=== PATIENT | male | born 1950 | race Caucasian/White ===

== ENCOUNTER → 2020-06-14 06:47 | Outpatient (CLI) | payer MEDICARE, SELFPAY ==
[2020-06-14 19:10] LABS: SARS-CoV-2 RNA PCR Negative
== END ==
PROVIDERS: PCP Internal Medicine; Visit Provider Internal Medicine
DX: Z01.812 Encounter for preprocedural laboratory examination (principal); Z20.822 Contact with and (suspected) exposure to COVID-19
CPT/HCPCS: C9803; U0003; U0005

== ENCOUNTER 2020-06-17 01:13 | Day surgery (SDC) | payer MEDICARE, SELFPAY ==
[2020-06-16 17:45] VITALS: BMI 30.7
--- NOTE | 2020-06-17 | ECHO_ITS ---
Patient Info Name: Sanchez Keane Age: 69 years : 1950 Gender: Male Ht: 69 in Wt: 209 lbs BSA: 2.18 m2 HR: 83 bpm BP: 105 / 71 mmHg Heart Rhythm: Atrial Flutter Technical Quality: Good Exam Date: 06/17/2020 2:28 PM Exam Location: [facility] Patient Status: Outpatient Admit Date: 06/17/2020 Staff Ordering Physician: Eduin Melchor MD ([facility]) Digital Photographic Printer: Romulo Corona RDCS Attending Provider: Eduin Melchor MD (michelle/patrick) Exam Type: CA echo transesophageal Study Info Indications 427.32 - Atrial flutter Complete two-dimensional, color flow and Doppler transesophageal study is performed. Agitated saline study is performed. History/Risk Factors Atrial flutter. Summary 1. Left ventricular systolic function is normal with an ejection fraction by of 55-60 %. 2. Left atrial appendage is normal with normal velocity and no thrombus. 3. Patent foramen ovale (PFO) noted by color doppler and confirmed by bubble study. 4. There is trace mitral valve regurgitation. 5. There is mild tricuspid valve regurgitation. Left Ventricle Left ventricular chamber dimension is normal. Left ventricular systolic function is normal with an ejection fraction by of 55-60 %. There is no increased left ventricular wall thickness. Left ventricular septal wall motion is normal. The left ventricular diastolic function is normal. Right Ventricle Right ventricular chamber dimension is normal. Right ventricular systolic function is normal. Left Atria Left atrial chamber dimension is normal. There is no left atrial appendage thrombus. Right Atria Right atrial chamber dimension is normal. Atrial Septum Patent foramen ovale (PFO) noted by color doppler and confirmed by bubble study. Atrial Appendage Left atrial appendage is normal with normal velocity and no thrombus. Aortic Valve The aortic valve is trileaflet. There is no aortic valve sclerosis. There is no aortic valve stenosis. There is no aortic valve regurgitation. Pulmonic Valve The pulmonic valve is normal. There is no pulmonic valve stenosis. There is no pulmonic regurgitation. Mitral Valve The mitral valve has normal leaflets. There is no mitral valve stenosis. There is trace mitral valve regurgitation. Tricuspid Valve The tricuspid valve leaflets are normal. There is no significant tricuspid valve stenosis. There is mild tricuspid valve regurgitation. Pericardium/Pleural The pericardium appears normal. There is Empty pericardial effusion. Aorta The aortic root size at the sinus of Valsalva is normal. The prox ascending aorta size is normal. Ventricles Name Value Normal LV Fractional Shortening/Ejection Fraction 2D/MM LV EF (BP MOD) 5,560 % 52-72 Report Signatures
--- NOTE | 2020-06-17 12:30 | ECG_ITS ---
Measurements Intervals [place] Rate: 78 P: [place]: 0 QRS: 37 QRSD: 97 T: 72 QT: 369 QTc: 422 Interpretive Statements ATRIAL FLUTTER/TACHYCARDIA BASELINE ARTIFACT- AVR, AVL, AVF, V3-V4 ABNORMAL ECG Electronically Signed On 06-17-2020 12:58:31 MOLECULAR GENETICIST by Jeremi Carpio D.O.
[2020-06-17 13:08] VITALS: BP 133/85; PULSE 75; RESP 14; TEMP 36.6; O2SAT 96
[2020-06-17 13:25] LABS: Anion Gap 6 mmol/L (8-16); Blood Urea Nitrogen 19 mg/dL (9-20); Calcium 9.2 mg/dL (8.4-10.2); Carbon Dioxide 33 mmol/L (22-30); Chloride 103 mmol/L (98-107); Estimated CRCL calculation 66 ml/min; Estimated Glomerular Filt Rate > 60; Glucose 103 mg/dL (75-110); Magnesium 1.8 mg/dL (1.6-2.3); Potassium 4.2 mmol/L (3.4-5.0); Sodium 142 mmol/L (137-145)
--- NOTE | 2020-06-17 13:59 | PM.IMHP ---
H&P: HPI History of Present Illness Date/Time: 06/17/20 13:59 69 year-old Male with h/o hyperlipidemia and Atrial flutter ( Xarelto) , CAD single vessel disease 90% RCA (09-19-19), mild Pulm HTN, mild TR who presented to the hospital for elective Transesophageal echocardiogram and cardioversion He was started on Amiodarone for A flutter in Apr 13. Today he remains in flutter . He has shortness of breath walking room to room at home. He denies chest pain. Had Left heart cath done in 09/19/19 revealed one vessel coronary artery disease,mild 90% stenosis involving the right coronary . He was admitted to the hospital 04/03/19 for Atrial flutter with RVR . He quit smoking in 1995. Had ECHO done in 04/03/19 showed EF 55-60% , There is mild tricuspid valve regurgitation. Mild pulmonary HTN, estimated pulmonary arterial systolic pressure is 44 mmHg. , Chief Complaint: Dyspnea on exertion Atrial Flutter Narrative: Sanchez Keane is a 69 year old male Review of Systems Review of Systems: All systems reviewed & are unremarkable except as noted in HPI and below Constitutional: Constitutional: Denies fatigue and Denies headache(s) Eyes: Eyes: Denies blurry vision ENT: Reports Normal hearing present and Denies headache(s) Cardiovascular: Cardiovascular: Denies chest pain, Denies diaphoresis, Denies pedal edema, Denies leg edema, Denies lightheadedness, Denies palpitations and Denies dyspnea Respiratory: Respiratory: Denies cough and Denies dyspnea Gastrointestinal: Gastrointestinal: Denies abdominal pain Musculoskeletal: Musculoskeletal: Denies back pain Neurologic: Reports Normal hearing present and Denies headache(s) Psychiatric: Psychiatric: Denies anxiety Endocrine: Endocrine: Denies fatigue and Denies palpitations [facility] Past Medical History Medical History (Updated 06/17/20 @ 14:02 by Eduin Melchor MD) Arthritis Atrial flutter Fistula 2010 HLD (hyperlipidemia) Kidney failure UTI (urinary tract infection) Surgical History Surgical History History of colon resection 2010, due to fistula History of hernia surgery x2 Family History Family History Mother CHF (congestive heart failure) Lung cancer Sibling Pacemaker Acute myocardial infarction Father Acute myocardial infarction Sibling Acute myocardial infarction Social History Social History Smoking packs per day: 1 Smoking cigarettes per day: 20.0 Years smoked: 30 Smoking pack-years: 30.00 Smoking status: Former smoker Tobacco type: cigarettes Second hand tobacco smoke exposure: No Smoking end date: 04/25/00 Alcohol intake: never Substance use: never Living arrangements: with family Gender identity (if verbalized by the patient): Male Spiritual care concerns: No Meds Home Medications and Allergies Home Medications Medication Instructions Recorded Confirmed Type diltiazem HCl 300 mg PO QAM #30 cap 04/04/19 06/16/20 Rx furosemide 20 mg PO DAILY #30 tablet 04/04/19 06/16/20 Rx rivaroxaban [Xarelto] 20 mg PO DAILY@1700 #30 tablet 04/04/19 06/16/20 Rx clopidogrel 75 mg tablet 75 mg PO DAILY 12/26/19 06/16/20 History amiodarone 200 mg PO DAILY 06/16/20 06/16/20 History rosuvastatin 10 mg PO DAILY 06/16/20 06/16/20 History Allergies Allergy/AdvReac Type Severity Reaction Status Date / Time epinephrine Allergy Unknown heart Verified 12/26/19 08:12 ketorolac Allergy Unknown KIDNEY Verified 04/12/19 09:43 FAILURE Sulfa (Sulfonamide Allergy Unknown DOES NOT Verified 04/12/19 09:43 Antibiotics) REMEMBER Vital Signs Vital Signs - 24 hr 06/17/20 13:08 Temperature 36.6 C Pulse Rate 75 Respiratory Rate 14 Blood Pressure 133/85 Pulse Oximetry 96 Exam Narrative: Exam Narrative: General - well-appearing, in no acute dis
--- NOTE | 2020-06-17 14:02 | WPDANESEPP ---
Anes - Eval Pre Procedure Procedure: Operation Date: 06/17/20 14:00 Proposed Procedures p Trans Esophageal Echo - Eduin Melchor MD s Electrical Cardioversion - Eduin Melchor MD Date/Time: 06/17/20 14:02 Pre Op Diagnosis: A Flutter Patient Data Age: 69 Gender: M Height: 1.75 m Weight: 90.2 kg Last Vital Signs Temp 36.6 C 06/17/20 13:08 Pulse 75 06/17/20 13:08 Resp 14 06/17/20 13:08 BP 133/85 06/17/20 13:08 Pulse Ox 96 06/17/20 13:08 Allergies Allergy/AdvReac Type Severity Reaction Status Date / Time epinephrine Allergy Unknown heart Verified 12/26/19 08:12 ketorolac Allergy Unknown KIDNEY Verified 04/12/19 09:43 FAILURE Sulfa (Sulfonamide Allergy Unknown DOES NOT Verified 04/12/19 09:43 Antibiotics) REMEMBER Home Medications Medication Instructions Recorded Confirmed Type diltiazem HCl 300 mg PO QAM #30 cap 04/04/19 06/16/20 Rx furosemide 20 mg PO DAILY #30 tablet 04/04/19 06/16/20 Rx rivaroxaban [Xarelto] 20 mg PO DAILY@1700 #30 tablet 04/04/19 06/16/20 Rx clopidogrel 75 mg tablet 75 mg PO DAILY 12/26/19 06/16/20 History amiodarone 200 mg PO DAILY 06/16/20 06/16/20 History rosuvastatin 10 mg PO DAILY 06/16/20 06/16/20 History Laboratory Tests 06/17/20 13:01 Sodium 142 mmol/L mmol/L (137-145) Potassium 4.2 mmol/L mmol/L (3.4-5.0) Chloride 103 mmol/L mmol/L (98-107) Carbon Dioxide 33 mmol/L H mmol/L (22-30) Anion Gap 6 mmol/L L mmol/L (8-16) BUN 19 mg/dL mg/dL (9-20) Creatinine 0.90 mg/dL mg/dL (0.7-1.3) Estim Creat Clear Calc 66 ml/min ml/min Estimated GFR > 60 (59 - ) Glucose 103 mg/dL mg/dL (75-110) Calcium 9.2 mg/dL mg/dL (8.4-10.2) Magnesium 1.8 mg/dL mg/dL (1.6-2.3) Patient hx anesthesia problems: none Family hx anesthesia problems: none PMFSH Past Medical History Medical History (Updated 06/17/20 @ 14:02 by Eduin Melchor MD) Arthritis Atrial flutter Fistula 2010 HLD (hyperlipidemia) Kidney failure UTI (urinary tract infection) Surgical History Surgical History History of colon resection 2010, due to fistula History of hernia surgery x2 Family History Family History Mother CHF (congestive heart failure) Lung cancer Sibling Pacemaker Acute myocardial infarction Father Acute myocardial infarction Sibling Acute myocardial infarction Social History Social History Smoking packs per day: 1 Smoking cigarettes per day: 20.0 Years smoked: 30 Smoking pack-years: 30.00 Smoking status: Former smoker Tobacco type: cigarettes Second hand tobacco smoke exposure: No Smoking end date: 04/25/00 Alcohol intake: never Substance use: never Living arrangements: with family Gender identity (if verbalized by the patient): Male Spiritual care concerns: No Exam Day of Procedure 06/17/20 14:02
--- NOTE | 2020-06-17 14:34 | WPDANESEFPP ---
Anes - Eval Final PreProcedure Day of Procedure 06/17/20 14:34 Patient weight: overweight Heart: irregular rhythm Lungs: clear to auscultation and normal air movement Airway: Mallampati scale class II Neurological: alert and oriented Last oral intake: >/= 8 hours ASA classification: III Emergent: no Anesthetic plan: proceed Anesthesia type and monitoring: general GIVS and standard monitoring Informed Consent: The patient's anesthetic plan and its attendant risks and benefits were discussed with the patient/family/POA. Questions were solicited and answers provided to the satisfaction of the patient/family/POA.
--- NOTE | 2020-06-17 15:02 | ECG_ITS ---
Measurements Intervals [place] Rate: 79 P: [place]: 0 QRS: 24 QRSD: 100 T: 49 QT: 398 QTc: 459 Interpretive Statements ATRIAL FIBRILLATION MINIMAL Q WAVES- INFERIOR LEADS BASELINE ARTIFACT- II, III, AVF, V1, V4-V6 ABNORMAL ECG Electronically Signed On 06-17-2020 15:28:21 MARKETING PROGRAM MANAGER by Jeremi Carpio D.O.
--- NOTE | 2020-06-17 15:07 | ECG_ITS ---
Measurements Intervals [place] Rate: 62 P: 74 [place]: 219 QRS: 23 QRSD: 114 T: 68 QT: 434 QTc: 442 Interpretive Statements SINUS RHYTHM WITH FIRST DEGREE AV BLOCK MINIMAL Q WAVES- INFERIOR LEADS BASELINE WANDER- I, III, AVR, AVL, AVF, V1 ABNORMAL ECG Electronically Signed On 06-17-2020 15:29:00 HEALTH CARE SPECIALIST by Jeremi Carpio D.O.
[2020-06-17 15:15] VITALS: BP 105/71; PULSE 68; RESP 17; TEMP 36.2; O2SAT 96
--- NOTE | 2020-06-17 15:16 | WPDTECDV ---
RAMBO with Cardioversion Date of procedure: 06/17/20 Procedure Type: Transesophageal echocardiogram Cardioversion: Consent for procedure: Risks and benefits discussed with patient and consent obtained Diagnosis: Atrial Flutter Indications: Atrial Flutter Description of Procedure: The appropriate time-out procedure was performed including proper identification of the patient, physician, procedure, documentation, and there were no safety issues identified. The patient participated actively in this. Posterior pharynx was anesthetized with local spray. After sedation the transesophageal probe was introduced into the posterior pharynx and esophagus without difficulty. No Left atrial appendage clot was identified. Patient tolerated RAMBO well. Probe was removed. Patient was placed in the supine position and hands free patches were placed on his chest at the mid sternal and mid axillary line . 2 shock was provided at, 100 Joules with unsuccessful resumption of normal sinus rhythm then 200 Joules with successful resumption of normal sinus rhythm. This was confirmed on EKG. Repeat EKG confirms return to sinus rhythm. Complications: The patient tolerated the procedure well without complications. Sedation: Propofol. Anesthesia was administered and monitored per anesthesiologist Findings: s/p Transesophageal echocardiogram with no Left atrial appendage thrombus identified. Normal LV systolic function. . Incidental finding of PFO noted with color Doppler and confirmed with bubbles study. Successful synched cardioversion back to normal sinus rhythm. Confirmed with EKG Conclusion: s/p successful cardioversion
--- NOTE | 2020-06-17 15:24 | PM.DS ---
DS: Admitting Diagnosis Admitting Diagnosis Admitting Diagnosis: Atrial Flutter DS: Discharge Diagnosis Discharge Diagnosis (1) Atrial flutter: Code(s): I48.92 - Unspecified atrial flutter Status: Acute Assessment and Plan: Patient was brought for elective cardioversion for atrial flutter. Patient was symptomatic with dyspnea on minimal exertion despite rate control. Please refer to procedure note for details Patient tolerated RAMBO and cardioversion well. Stable for discharge home after recovery from anesthesia . DS: Summary Hospital Course Hospital Course: Please refer to H&P for details Time Spent with Patient Time attestation: Total time spent providing and/or coordinating discharge services: Exam Narrative: Exam Narrative: General - well-appearing, in no acute distress. Neck - Supple without lymphadenopathy or thyromegaly. 2+ carotid pulses with normal carotid upstroke and duration. No carotid bruits. Cardiovascular - No heave. Regular in rate and rhythm, normal S1, S2, with no murmur, no rubs, and no gallops. Lung - Clear to auscultation bilaterally. Abdomen - Bowels sounds present and of normal activity. Abdomen soft, nontender, and nondistended. Extremities - No cyanosis, clubbing, or edema. Pulses: radial 2+ bilaterally, posterior tibial and dorsalis pedis 2+ bilaterally. Neuro - Alert and oriented to the situation, without obvious deficits. Neuro: Cranial nerves: Yes Normal hearing present DS: Data Data Completed and Pending Labs on day of discharge: Labs from last 24 hours 06/17/20 13:01 Sodium 142 Potassium 4.2 Chloride 103 Carbon Dioxide 33 H Anion Gap 6 L BUN 19 Creatinine 0.90 Estim Creat Clear Calc 66 Estimated GFR > 60 Glucose 103 Calcium 9.2 Magnesium 1.8 Discharge Plan Discharge Patient Disposition: Home, Self-Care Stand Alone Forms: General Discharge Instructions Follow-up/Referrals: Eduin Melchor MD [Physician] - Discharge Medications: Continued clopidogrel 75 mg tablet 75 mg PO DAILY RF: 0 Xarelto 20 mg Tablet 20 mg PO DAILY@1700 Qty: 30 RF: 3 diltiazem HCl 300 mg Capsule,Extended Release 24hr 300 mg PO QAM Qty: 30 RF: 2 furosemide 20 mg Tablet 20 mg PO DAILY Qty: 30 RF: 2 amiodarone 200 mg Tablet 200 mg PO DAILY RF: 0 rosuvastatin 10 mg Tablet 10 mg PO DAILY RF: 0
[2020-06-17 15:30] VITALS: BP 108/86; PULSE 69; RESP 18; O2SAT 96
[2020-06-17 15:45] VITALS: BP 121/76; PULSE 76; RESP 18; O2SAT 93
[2020-06-17 16:00] VITALS: BP 122/80; PULSE 82; RESP 16; O2SAT 93
--- NOTE | 2020-06-17 16:01 | SUR.OPER ---
See anesthesia record for procedure medication administration and intra-procedure vital signs.
[2020-06-17 16:15] VITALS: BP 117/82; PULSE 77; RESP 16; O2SAT 93
--- NOTE | 2020-06-17 16:54 | SUR.PHASEII ---
D/C instructions reviewed with patient. All questions answered at this time.
== END 2020-06-17 16:45 | disposition home or self-care (01) ==
PROVIDERS: PCP Internal Medicine; Visit Provider Internal Medicine
PROC: (CPT 93312; principal; 2020-06-17 14:00)
PROC: 5A2204Z Restoration of Cardiac Rhythm, Single (ICD-10-PCS; 2020-06-17 14:00)
DX: I48.92 Unspecified atrial flutter (principal); Q21.1 Atrial septal defect; E78.5 Hyperlipidemia, unspecified; I25.10 Atherosclerotic heart disease of native coronary artery without angina pectoris; I27.20 Pulmonary hypertension, unspecified; I36.1 Nonrheumatic tricuspid (valve) insufficiency; R06.02 Shortness of breath; Z87.891 Personal history of nicotine dependence; Z79.01 Long term (current) use of anticoagulants; Z79.02 Long term (current) use of antithrombotics/antiplatelets
CPT/HCPCS: 36415; 80048; 83735; 92960; 93005; 93312; 93320; 93325; C9803; J7040; U0003; U0005

== ENCOUNTER 2021-03-06 02:14 | Day surgery (SDC) | payer MEDICARE, SELFPAY ==
[2021-02-23 09:45] VITALS: BMI 30.6
--- NOTE | 2021-03-05 16:27 | PM.HPGS ---
History of Present Illness History of Present Illness Consent: Risks, benefits, and alternatives have been discussed and questions answered. Patient agrees to proceed with procedure. Chief complaint: hx of colon polyps Narrative: Sanchez Keane is a 70 year old male referred for colon cancer screening. He has had polyps removed in the past. About 8 years ago he had a surgical resection of part of his colon for fistula Review of Systems Review of Systems: All systems reviewed & are unremarkable except as noted in HPI and below PMFSH Past Medical History Medical History Arthritis Atrial flutter Fistula 2010 HLD (hyperlipidemia) Kidney failure UTI (urinary tract infection) Surgical History Surgical History History of colon resection 2010, due to fistula History of hernia surgery x2 Family History Family History Mother CHF (congestive heart failure) Lung cancer Sibling Pacemaker Acute myocardial infarction Father Acute myocardial infarction Sibling Acute myocardial infarction Social History Social History Smoking packs per day: 1 Smoking cigarettes per day: 20.0 Years smoked: 34 Smoking pack-years: 34.00 Smoking status: Former smoker Tobacco type: cigarettes Second hand tobacco smoke exposure: No Smoking end date: 04/25/00 Alcohol intake: never Substance use: never Living arrangements: with family Gender identity (if verbalized by the patient): Male Spiritual care concerns: No Meds Home Medications and Allergies Home Medications Medication Instructions Recorded Confirmed Type diltiazem HCl 300 mg PO QAM #30 cap 04/04/19 02/23/21 Rx furosemide 20 mg PO DAILY #30 tablet 04/04/19 02/23/21 Rx clopidogrel 75 mg tablet 75 mg PO DAILY 12/26/19 02/23/21 History amiodarone 200 mg PO DAILY 06/16/20 02/23/21 History rosuvastatin 10 mg PO DAILY 06/16/20 02/23/21 History aspirin 81 mg PO DAILY 02/23/21 02/23/21 History Allergies Allergy/AdvReac Type Severity Reaction Status Date / Time epinephrine Allergy Unknown heart Verified 03/06/21 08:28 ketorolac Allergy Unknown KIDNEY Verified 03/06/21 08:28 FAILURE Sulfa (Sulfonamide Allergy Unknown DOES NOT Verified 03/06/21 08:28 Antibiotics) REMEMBER Exam Const: General: alert Orientation/consciousness: patient oriented x3 Resp: Auscultation: clear to auscultation bilaterally Cardio: Rhythm: regular rhythm GI: GI Palp: Yes Soft to palpation and No Tenderness to palpation present (GI) Neuro: General: patient oriented x3 Assessment and Plan Assessment and plan (1) Colon cancer screening: Code(s): Z12.11 - Encounter for screening for malignant neoplasm of colon Status: Acute Assessment and Plan: Colonoscopy with possible biopsy or polypectomy or cautery or injection of substances.
[2021-03-06 08:31] VITALS: BP 153/55; PULSE 74; RESP 20; TEMP 36.5; O2SAT 92; BMI 29.7
[2021-03-06] MEDS: LACTATED RINGERS 1,000 ML 150 ML IV CONT (08:34)
--- NOTE | 2021-03-06 08:55 | WPDANESEPPF ---
Anes - Initial Pre Proc Eval Procedure: Operation Date: 03/06/21 10:00 Proposed Procedures p Screening Colonoscopy - Tyrone Tian MD Date/Time: 03/06/21 08:55 Surgeon: Tyrone Tian MD Pre Op Diagnosis: hx of colon polyps Patient Data Age: 70 Gender: M Height: 1.75 m Weight: 91.5 kg Last Vital Signs Temp 36.5 C 03/06/21 08:31 Pulse 74 03/06/21 08:31 Resp 20 03/06/21 08:31 BP 153/55 H 03/06/21 08:31 Pulse Ox 92 03/06/21 08:31 Allergies Allergy/AdvReac Type Severity Reaction Status Date / Time epinephrine Allergy Unknown heart Verified 03/06/21 08:28 ketorolac Allergy Unknown KIDNEY Verified 03/06/21 08:28 FAILURE Sulfa (Sulfonamide Allergy Unknown DOES NOT Verified 03/06/21 08:28 Antibiotics) REMEMBER Home Medications Medication Instructions Recorded Confirmed Type diltiazem HCl 300 mg PO QAM #30 cap 04/04/19 02/23/21 Rx furosemide 20 mg PO DAILY #30 tablet 04/04/19 02/23/21 Rx clopidogrel 75 mg tablet 75 mg PO DAILY 12/26/19 02/23/21 History amiodarone 200 mg PO DAILY 06/16/20 02/23/21 History rosuvastatin 10 mg PO DAILY 06/16/20 02/23/21 History aspirin 81 mg PO DAILY 02/23/21 02/23/21 History Patient hx anesthesia problems: none Family hx anesthesia problems: none Results Review: All pre-operative results and documents have been reviewed as part of the pre-operative evaluation. [facility] Past Medical History Medical History Arthritis Atrial flutter Fistula 2010 HLD (hyperlipidemia) Kidney failure UTI (urinary tract infection) Surgical History Surgical History History of colon resection 2010, due to fistula History of hernia surgery x2 Family History Family History Mother CHF (congestive heart failure) Lung cancer Sibling Pacemaker Acute myocardial infarction Father Acute myocardial infarction Sibling Acute myocardial infarction Social History Social History Smoking packs per day: 1 Smoking cigarettes per day: 20.0 Years smoked: 34 Smoking pack-years: 34.00 Smoking status: Former smoker Tobacco type: cigarettes Second hand tobacco smoke exposure: No Smoking end date: 04/25/00 Alcohol intake: never Substance use: never Living arrangements: with family Gender identity (if verbalized by the patient): Male Spiritual care concerns: No Anes - Eval Final PreProcedure Day of Procedure 03/06/21 08:55 Patient weight: overweight Heart: regular rate and rhythm Lungs: clear to auscultation Airway: Mallampati scale class II Neurological: alert and oriented Last oral intake: >/= 8 hours ASA classification: III Emergent: no Anesthetic plan: proceed Anesthesia type and monitoring: general GIVS and standard monitoring Results Review: All pre-operative results and documents have been reviewed as part of the pre-operative evaluation. Informed Consent: The patient's anesthetic plan and its attendant risks and benefits were discussed with the patient/family/POA. Questions were solicited and answers provided to the satisfaction of the patient/family/POA.
[2021-03-06 10:57] VITALS: BP 126/106; PULSE 54; RESP 18; O2SAT 92
[2021-03-06 11:07] VITALS: BP 136/83; PULSE 55; RESP 20; O2SAT 96
[2021-03-06 11:17] VITALS: BP 145/79; PULSE 50; RESP 20; O2SAT 98
== END 2021-03-06 11:45 | disposition home or self-care (01) ==
PROVIDERS: PCP Internal Medicine; Visit Provider Internal Medicine Gastroenterology
PROC: 0DJD8ZZ Inspection of Lower Intestinal Tract, Via Natural or Artificial Opening Endoscopic (ICD-10-PCS; CPT 45378; principal; 2021-03-06 10:00)
DX: Z12.11 Encounter for screening for malignant neoplasm of colon (principal); D12.4 Benign neoplasm of descending colon; K64.8 Other hemorrhoids; K63.5 Polyp of colon; Z79.82 Long term (current) use of aspirin; M19.90 Unspecified osteoarthritis, unspecified site; I48.92 Unspecified atrial flutter; E78.5 Hyperlipidemia, unspecified; N19 Unspecified kidney failure; Z87.891 Personal history of nicotine dependence
CPT/HCPCS: 45380; 88305; J2704; J7120

== ENCOUNTER 2022-04-05 01:29 | Emergency (ER) | payer MEDICARE, SELFPAY ==
[2022-04-05] VITALS (35 sets, daily range): BP systolic 109–171; BP diastolic 61–84; PULSE 58–108; RESP 12–21; TEMP 36.3; O2SAT 89–96
--- NOTE | ~2022-04-05 | XR_ITS ---
EXAMINATION: XR chest 1V portable DATE: 04/05/2022 02:41 INDICATION: Shortness of breath. TECHNIQUE: A single frontal view of the chest was obtained. COMPARISON: Chest 2 views 04/03/2019, CT abdomen and pelvis 04/12/2019 FINDINGS: There is mild atelectasis in right lower lung zone. No pleural effusion or pneumothorax. Th e heart size is normal. There are prominent paracardial fat pads. IMPRESSION: 1. Mild atelectasis in right lower lung zone. Reviewed, dictated and finalized at location A. MANAGER
--- NOTE | 2022-04-05 01:40 | ECG_ITS ---
Measurements Intervals [place] Rate: 72 P: 81 [place]: 149 QRS: 26 QRSD: 94 T: 81 QT: 365 QTc: 401 Interpretive Statements SINUS RHYTHM LOW QRS VOLTAGE BORDERLINE ECG COMPARED TO ECG 06/17/2020 15:09:39 NO SIGNIFICANT CHANGES Electronically Signed On 04-05-2022 6:24:23 TRANSMITTER ENGINEER by Aubrey Camara M.D.
[2022-04-05] MEDS: methylPREDNISolone SOD SUCC 125 MG VIAL IV PUSH (01:42)
[2022-04-05] MEDS: diphenhydrAMINE HCl INJ 50 MG/ML VIAL IV PUSH (01:42)
--- NOTE | 2022-04-05 01:46 | ED.ALLEREA ---
HPI - Allergic Reaction General Chief complaint: Allergic Reaction <LEONA Mota Last Filed: 04/05/22 18:42> Stated complaint: hives, SOB <LEONA Mota Last Filed: 04/05/22 18:42> Time Seen by Provider: 04/05/22 01:34 <LEONA Mota Last Filed: 04/05/22 18:42> History of Present Illness HPI narrative: Patient is a 71-year-old male here for evaluation of pruritic rash to his abdomen and face. Patient states that he woke up with itching to his abdomen and looked in the mirror and noticed that his entire trunk was red. He also felt short of breath. No new medications, foods, soaps or detergents. Patient tells me this exact situation happened 3 years prior with a pruritic rash and shortness of breath in the middle of the night. He at that time was in atrial fibrillation with rapid ventricular response and was admitted to the hospital for observation. Patient is noted to be in sinus rhythm at this time. Patient was in his usual state of health yesterday. Currently denies any chest pain, leg swelling, sinus congestion, cough. <LEONA Mota Last Filed: 04/05/22 18:42> Related Data Home medications: Home Medications Medication Instructions Recorded Confirmed clopidogrel 75 mg tablet 75 mg PO DAILY 12/26/19 02/23/21 amiodarone 200 mg tablet 200 mg PO DAILY 06/16/20 02/23/21 rosuvastatin 10 mg tablet 10 mg PO DAILY 06/16/20 02/23/21 aspirin 81 mg tablet 81 mg PO DAILY 02/23/21 02/23/21 <LEONA Mota Last Filed: 04/05/22 18:42> Allergies/adverse reactions: Allergies Allergy/AdvReac Type Severity Reaction Status Date / Time epinephrine Allergy Unknown heart Verified 04/05/22 01:39 ketorolac Allergy Unknown KIDNEY Verified 04/05/22 01:39 FAILURE Sulfa (Sulfonamide Allergy Unknown DOES NOT Verified 04/05/22 01:39 Antibiotics) REMEMBER <LEONA Mota Last Filed: 04/05/22 18:42> Review of Systems Review of Systems: CONSTITUTIONAL: Denies fever, chills, or sweats. EYES: Denies visual changes, redness, or discharge. ENT: Denies rhinorrhea, congestion, sore throat, or otalgia. CARDIOVASCULAR: Denies chest pain, palpitations, or edema. RESPIRATORY: Reports shortness of breath GASTROINTESTINAL: Denies abdominal pain, nausea, vomiting, or diarrhea. GENITOURINARY: Denies dysuria or hematuria. SKIN: Reports pruritic rash MUSCULOSKELETAL: Denies back pain, joint pain, or myalgia. NEUROLOGIC: Denies headache, numbness, or weakness. PSYCHIATRIC: Denies anxiety or depression. <Padma Barroso PA-C - Last Filed: 04/05/22 18:42> [facility] Past Medical History Medical History: Medical History Arthritis Atrial flutter Fistula 2010 HLD (hyperlipidemia) Kidney failure UTI (urinary tract infection) <Padma Barroso PA-C - Last Filed: 04/05/22 18:42> Surgical History Surgical History: Surgical History History of colon resection 2010, due to fistula History of hernia surgery x2 <Padma Barroso PA-C - Last Filed: 04/05/22 18:42> Family History Family History: Family History Mother CHF (congestive heart failure) Lung cancer Sibling Pacemaker Acute myocardial infarction Father Acute myocardial infarction Sibling Acute myocardial infarction <Padma Barroso PA-C - Last Filed: 04/05/22 18:42> Social History Social History: Social History Smoking packs per day: 1 Smoking cigarettes per day: 20.0 Years smoked: 34 Smoking pack-years: 34.00 Smoking status: Former smoker Tobacco type: cigarettes Second hand tobacco smoke exposure: No Smoking end date: 04/25/00 Alcohol intake: never Substance u
[2022-04-05] MEDS: FAMOTIDINE 20 MG/2 ML VIAL 40 MG IV PUSH (01:54)
[2022-04-05] MEDS: EPINEPHrine HCL INJ 1 MG/ML AMPUL 0.3 MG IM (01:54)
[2022-04-05 02:25] LABS: Basophils Absolute Auto 0.1 K/mm3 (0.0-0.1); Basophils Percent Auto 1.3 % (0.2-1.2); Eosinophils Absolute Auto 0.4 K/mm3 (0-0.3); Eosinophils Percent Auto 5.3 % (0-4.4); Hematocrit 50.6 % (42.0-52.0); Hemoglobin 16.8 g/dL (14.0-18.0); Immature Granulocyte Absolute 0.03 K/mm3 (0.00-0.031); Immature Granulocyte Percent A 0.4 % (0-0.5); Lymphocytes Absolute Auto 2.62 K/mm3 (0.9-3.2); Lymphocytes Percent Auto 33.7 % (18.3-44.2); Mean Corpuscular HGB Conc 33.2 g/dl (32-36); Mean Corpuscular Hemoglobin 29.4 pg (26-34); Mean Corpuscular Volume 88.6 fl (80-100); Mean Platelet Volume 10.3 fl (7.4-10.4); Monocytes Percent Auto 12.6 % (2.6-8.5); Neutrophils Absolute Auto 3.6 K/mm3 (1.3-6.7); Neutrophils Percent Auto 46.7 % (45.5-73.1); Platelet Count Result 274 k/mm3 (150-375); Red Blood Count 5.71 M/mm3 (4.6-6.20); Red Cell Distribution Width 13.3 % (11.5-14.5); White Blood Count 7.8 K/mm3 (4.5-10.0)
[2022-04-05 02:42] LABS: Alanine Aminotransferase 19 U/L (6-50); Albumin Level 4.4 g/dL (3.5-5.1); Alkaline Phosphatase 61 U/L (38-126); Anion Gap 6 mmol/L (8-16); Aspartate Amino Transferase 30 U/L (17-59); Bilirubin,Total 1.1 mg/dL (0.2-1.3); Blood Urea Nitrogen 21 mg/dL (9-20); Calcium 8.5 mg/dL (8.4-10.2); Carbon Dioxide 27 mmol/L (22-30); Chloride 103 mmol/L (98-107); Estimated CRCL calculation 73 ml/min; Estimated Glomerular Filt Rate > 60; Glucose 121 mg/dL (65-110); Potassium 4.2 mmol/L (3.4-5.0); Sodium 136 mmol/L (137-145)
[2022-04-05 02:51] LABS: Alanine Aminotransferase 19 U/L (6-50); Albumin Level 4.4 g/dL (3.5-5.1); Alkaline Phosphatase 67 U/L (38-126); Anion Gap 5 mmol/L (8-16); Aspartate Amino Transferase 24 U/L (17-59); Bilirubin,Total 1.1 mg/dL (0.2-1.3); Blood Urea Nitrogen 20 mg/dL (9-20); Calcium 8.8 mg/dL (8.4-10.2); Carbon Dioxide 29 mmol/L (22-30); Chloride 103 mmol/L (98-107); Estimated CRCL calculation 66 ml/min; Estimated Glomerular Filt Rate > 60; Glucose 120 mg/dL (65-110); Potassium 4.3 mmol/L (3.4-5.0); Sodium 137 mmol/L (137-145)
[2022-04-05 03:03] LABS: NT Pro B Type Natriuretic Pept 88 pg/mL (5-100); Troponin I < 0.012 ng/mL (0.000-0.034)
--- NOTE | 2022-04-05 04:45 | PC.NURSE ---
patient states he is feeling better. no hives noted at this time
== END 2022-04-05 05:40 | disposition home or self-care (01) ==
PROVIDERS: Physician Assistant; Emergency Provider Emergency Medicine; PCP Internal Medicine
DX: T78.40XA Allergy, unspecified, initial encounter (principal); I48.92 Unspecified atrial flutter; E78.5 Hyperlipidemia, unspecified; M19.90 Unspecified osteoarthritis, unspecified site; Z90.49 Acquired absence of other specified parts of digestive tract; Z87.440 Personal history of urinary (tract) infections; Z87.891 Personal history of nicotine dependence; Z79.82 Long term (current) use of aspirin; R94.31 Abnormal electrocardiogram [ECG] [EKG]; R06.02 Shortness of breath
CPT/HCPCS: 36415; 71045; 80053; 83880; 84484; 85025; 93005; 96372; 96374; 96375; 99284; J0171; J1200; J2930

== ENCOUNTER 2023-02-25 07:34 | Outpatient (CLI) | payer MEDICARE, SELFPAY | END 2023-02-25 07:35 | disposition home or self-care (01) | LOC: ANHAUDASC 07:35 | PROVIDERS: PCP Internal Medicine; Visit Provider Otolaryngology | DX: H90.3 Sensorineural hearing loss, bilateral (principal) | CPT/HCPCS: 92557; 92567 ==

== ENCOUNTER 2023-03-31 08:01 | Emergency (ER) | payer MEDICARE, SELFPAY ==
--- NOTE | ~2023-03-31 | XR_ITS ---
Clinical Indication: Shortness of breath PA and lateral views of the chest: Comparison: 04/05/2022 Findings: The lungs are clear, without evidence of focal consolidation or pleural effusion. Suspected COPD. Cardiomediastinal silhouette is within normal limits. Bones and soft tissues are unremarkable. Impression: Suspected COPD. Clear lungs. Reviewed, dictated and finalized at location . ORAL ASSISTANT Impression: Suspected COPD. Clear lungs.
--- NOTE | ~2023-03-31 | US_ITS ---
EXAMINATION:US venous doppler LE BI INDICATION:Leg swelling TECHNIQUE: Multiple grayscale, color flow and Doppler images of the right and left lower extremity de ep venous systems were obtained and reviewed. COMPARISON:No prior studies for comparison. FINDINGS: The common femoral, superficial femoral and popliteal veins demonstrate normal respiratory variation, augmentation and compressibility. Color flow is also seen within the posterior tibial, pe roneal, greater saphenous and profunda veins. IMPRESSION: 1: No lower extremity deep venous thrombosis. Reviewed, dictated and finalized at location L. DYER
--- NOTE | ~2023-03-31 | CT_ITS ---
EXAMINATION: CTA chest PE protocol DATE: 03/31/2023 09:29 INDICATION: Shortness of breath, tachycardia and bilateral lower limb swelling TECHNIQUE: Computed tomography (CT) pulmonary angiogram of the chest was performed with 100 mL Omnipa que-350 intravenous contrast. Additional 3D reconstructions utilizing coronal maximum intensity proje ction (MIP) were performed. The dose-length product was 544.01 mGy-cm. COMPARISON: None FINDINGS: Excellent contrast opacification of the pulmonary arteries. There is mild streak artifact from dense contrast in the superior vena cava and right atrium. Mild scattered respiratory motion artifact which does not significantly limit evaluation. No pulmonary embolism. Moderate emphysema. There is approxi mately 3.2 x 1.8 cm subpleural mass versus focal consolidation with spiculated margins at the posteri or right lower lobe. There is a very small right pleural effusion at the right posterior sulcus with some associated posterior basilar atelectasis at the right lower lobe. Reticular opacities in the dep endent right lower lobe most likely represents additional atelectasis with differential including pne umonia or asymmetric pulmonary edema. Couple calcified nodules in the right lower lobe along with tenzin cified right hilar and mediastinal lymph nodes consistent with old granulomatous disease. Status post likely partial left upper lobectomy with suture line extending craniocaudally along the left side of the suprahilar mediastinum. There is linear band of atelectasis/scarring in the lingula. Heart size is normal. Atherosclerotic coronary artery calcific lesion. No pericardial effusion. There is enlarge ment of the central pulmonary arteries consistent with pulmonary arterial hypertension. Thoracic aort a is normal in caliber with no dissection. No pathologically enlarged abdominal or pelvic lymphadenop athy. There are couple low-attenuation hepatic cysts the largest in the right hepatic lobe measuring 1.3 cm maximal diameter. Gallstone in the dependent aspect of the normal appearing gallbladder. There is a relatively recent-appearing date of fracture with linear sclerosis along the fracture stanley ne which extends from the anterior to the posterior aspect of the vertebral body with up to 60% anter ior vertebral body height loss but without retropulsion. There are few additional chronic appearing m ild compression fracture scattered throughout the thoracic spine. IMPRESSION: 1. No pulmonary embolism. 2. 3.2 x 1.8 cm subpleural masslike opacity at the posterior right lower lobe which could represent m alignancy or pneumonia. Correlate clinically and with any recent prior outside imaging. 3. Very small right pleural effusion. 4. Postoperative change of likely partial left upper lobectomy. 5. Multiple chronic appearing mild compression fractures throughout the thoracic spine with relativel y recent-appearing T8 burst fracture. 6. Cholelithiasis. Reviewed, dictated and finalized at location A. ES HELPER IMPRESSION: 1. No pulmonary embolism. 2. 3.2 x 1.8 cm subpleural masslike opacity at the posterior right lower lobe w hich could represent malignancy or pneumonia. Correlate clinically and with any recent prior outside imaging. 3. Very small right pleural effusion. 4. Postoperative change of likely partial left upper lobectomy. 5. Multiple chronic appearing mild compression fractures throughout the thoraci c spine with relatively recent-appearing T8 burst fracture. 6. Cholelithiasis.
--- NOTE | 2023-03-31 08:02 | ECG_ITS ---
Measurements Intervals [place] Rate: 72 P: 63 W[place]: 193 QRS: 16 QRSD: 107 T: 58 QT: 401 QTc: 440 Interpretive Statements SINUS RHYTHM COMPARED TO ECG 04/05/2022 01:53:15 NO SIGNIFICANT CHANGES Electronically Signed On 03-31-2023 9:21:24 [employer] OFF[employer] BOOKING by Jose Hubbard M.D.
[2023-03-31 08:06] VITALS: BP 122/66; PULSE 99; RESP 22; TEMP 36.6; O2SAT 94
[2023-03-31 08:26] VITALS: BP 121/62; PULSE 76; RESP 20; O2SAT 94
--- NOTE | 2023-03-31 08:38 | ED.GENADULT ---
HPI - General Adult General Chief complaint: Shortness of Breath/Dyspnea Stated complaint: swollen legs/SOB Time Seen by Provider: 03/31/23 08:13 History of Present Illness HPI narrative: 72-year-old male presenting to the emergency department for evaluation worsening shortness of breath and leg swelling. Patient is currently being treated for lung cancer and is followed by Dr Smith at [facility]. patient states over the last 2 weeks he has had worsening exertional shortness of breath. Patient does have history of COPD as well. Patient does report history of [place]. Patient denies any prior history of congestive heart failure. Patient states on Tuesday he began having swelling in his left lower extremity and then by Tuesday he had swelling in his right lower extremity. Patient's most recent chemotherapy was 03/08. patient was started on antibiotic, Levaquin 03/29 for possible pneumonia by his oncologist Related Data Home Medications Medication Instructions Recorded Confirmed clopidogrel 75 mg tablet mg 03/31/23 diltiazem HCl 300 mg mg PO 03/31/23 capsule,extended release 24 hr fluticasone fur. 200 mcg-umeclid inhalation 03/31/23 62.5 mcg-vilant 25 mcg inhalat.powder (Trelegy Ellipta) fluticasone fur. 200 mcg-umeclid inhalation 03/31/23 62.5 mcg-vilant 25 mcg inhalat.powder (Trelegy Ellipta) furosemide 20 mg tablet mg 03/31/23 03/31/23 levofloxacin 750 mg tablet mg 03/31/23 montelukast 10 mg tablet mg 03/31/23 potassium chloride 20 mEq meq PO 03/31/23 tablet,extended release(part/cryst) (Klor-Con M) Allergies Allergy/AdvReac Type Severity Reaction Status Date / Time epinephrine Allergy Severe heart Verified 03/31/23 08:29 racing ketorolac Allergy Unknown KIDNEY Verified 03/31/23 08:29 FAILURE Sulfa (Sulfonamide Allergy Unknown DOES NOT Verified 03/31/23 08:29 Antibiotics) REMEMBER Review of Systems Review of Systems: All systems reviewed & are unremarkable except as noted in HPI and below PMFSH Past Medical History Medical History Arthritis Atrial flutter Fistula 2010 HLD (hyperlipidemia) Kidney failure UTI (urinary tract infection) Surgical History Surgical History History of colon resection 2010, due to fistula History of hernia surgery x2 Stented coronary artery Family History Family History Mother CHF (congestive heart failure) Lung cancer Sibling Pacemaker Acute myocardial infarction Father Acute myocardial infarction Heart disease Sibling Acute myocardial infarction Diabetes mellitus Heart disease Social History Social History Smoking packs per day: 1 Smoking cigarettes per day: 20.0 Years smoked: 34 Smoking pack-years: 34.00 Smoking status: Former smoker Tobacco type: cigarettes Second hand tobacco smoke exposure: No Smoking end date: 04/25/00 Alcohol intake: never Substance use: never Lack of Transportation: No Lack of Food: Never True Current Housing: I Have Housing Concerned About Future Housing: No Difficulty Paying Gas/Electric Bills: No Difficulty Paying for Meds: No Currently Unemployed: No Education: High School Diploma/GED Difficulty w/ Childcare or Family Care: No Living arrangements: with family Gender identity (if verbalized by the patient): Male Spiritual care concerns: No Exam Narrative: APPEARANCE: Well appearing, no pain, no distress, well-nourished. HEAD: normocephalic, atraumatic. EYES: PERRLA/EOMI, conjunctivae clear. NOSE: Normal no drainage EARS:TMS clear with good light reflex. THROAT: Pharynx clear, no exudate. NECK: Supple. No adenopathy, no masses. RESPIRATORY: Airway patent, respirations nonlabored. Clear to auscultatio
[2023-03-31 08:46] LABS: Basophils Percent Auto 0.6 % (0.2-1.2); Eosinophils Percent Auto 0.5 % (0-4.4); Hematocrit 29.5 % (42.0-52.0); Hemoglobin 9.4 g/dL (14.0-18.0); Immature Granulocyte Absolute 0.22 K/mm3 (0.00-0.031); Immature Granulocyte Percent A 3.5 % (0-0.5); Lymphocytes Absolute Auto 0.87 K/mm3 (0.9-3.2); Lymphocytes Percent Auto 13.8 % (18.3-44.2); Mean Corpuscular HGB Conc 31.9 g/dl (32-36); Mean Corpuscular Hemoglobin 29.7 pg (26-34); Mean Corpuscular Volume 93.1 fl (80-100); Mean Platelet Volume 8.6 fl (7.4-10.4); Monocytes Absolute Auto 1.1 K/mm3 (0.1-0.6); Monocytes Percent Auto 17.4 % (2.6-8.5); Neutrophils Absolute Auto 4.1 K/mm3 (1.3-6.7); Neutrophils Percent Auto 64.2 % (45.5-73.1); Platelet Count Result 324 k/mm3 (150-375); Red Blood Count 3.17 M/mm3 (4.6-6.20); Red Cell Distribution Width 19.3 % (11.5-14.5); White Blood Count 6.3 K/mm3 (4.5-10.0)
[2023-03-31 09:09] LABS: Alanine Aminotransferase 23 U/L (6-50); Albumin Level 3.8 g/dL (3.5-5.1); Alkaline Phosphatase 88 U/L (38-126); Anion Gap 9 mmol/L (8-16); Aspartate Amino Transferase 31 U/L (17-59); Bilirubin,Total 0.7 mg/dL (0.2-1.3); Blood Urea Nitrogen 20 mg/dL (9-20); Calcium 8.8 mg/dL (8.4-10.2); Carbon Dioxide 29 mmol/L (22-30); Chloride 101 mmol/L (98-107); Estimated CRCL calculation 48 ml/min; Estimated Glomerular Filt Rate 59; Glucose 101 mg/dL (65-110); Potassium 3.5 mmol/L (3.4-5.0); Sodium 139 mmol/L (137-145)
[2023-03-31 09:15] LABS: NT Pro B Type Natriuretic Pept 1000 pg/mL (19.9-100)
[2023-03-31 10:28] LABS: Influenza A QL RT-PCR Negative (Negative); Influenza B QL RT-PCR Negative (Negative); RSV RNA, RT-PCR Negative (Negative); SARS-CoV-2 RNA PCR Negative (Negative)
[2023-03-31] MEDS: FUROSEMIDE INJ 40 MG/4 ML VIAL IV PUSH (12:09)
[2023-03-31 12:16] VITALS: BP 127/63; PULSE 78; RESP 14; O2SAT 95
== END 2023-03-31 12:19 | disposition home or self-care (01) ==
PROVIDERS: Emergency Provider Emergency Medicine; PCP Internal Medicine
DX: I50.9 Heart failure, unspecified (principal); S22.061A Stable burst fracture of T7-T8 vertebra, initial encounter for closed fracture; Z20.822 Contact with and (suspected) exposure to COVID-19; C34.90 Malignant neoplasm of unspecified part of unspecified bronchus or lung; J44.9 Chronic obstructive pulmonary disease, unspecified; I48.92 Unspecified atrial flutter; E78.5 Hyperlipidemia, unspecified; N19 Unspecified kidney failure; M19.90 Unspecified osteoarthritis, unspecified site; Z95.5 Presence of coronary angioplasty implant and graft; Z87.440 Personal history of urinary (tract) infections; Z87.891 Personal history of nicotine dependence; Z90.49 Acquired absence of other specified parts of digestive tract; Z79.60 Long term (current) use of unspecified immunomodulators and immunosuppressants; K80.20 Calculus of gallbladder without cholecystitis without obstruction; R91.8 Other nonspecific abnormal finding of lung field; X58.XXXA Exposure to other specified factors, initial encounter
CPT/HCPCS: 36415; 71046; 71275; 80053; 83880; 85025; 87637; 93005; 93970; 96374; 99284; J1940; Q9967